=== PATIENT | male | born 1940 | race Caucasian/White ===

== ENCOUNTER 2017-05-26 23:26 | Emergency (ER) | payer OTHER ==
[~2017-05-26] VITALS: Ht 177.8 cm; Wt 68.2 kg
[2017-05-26] MEDS ORDERED: PLEASE ENTER ALLERGIES MC SCH ×2 (23:45)
[2017-05-27] MEDS ORDERED: NITROGLYCERIN SINGLE TAB 0.4 MG SL PRN
[2017-05-27] MEDS ORDERED: SODIUM CHLORIDE FLUSH 10ML SYR IVF ONE
[2017-05-27 00:13] LABS: HEMATOCRIT 40.5 % (39.2-51.8); HEMOGLOBIN 13.6 g/dL (13.7-18.0); WHITE BLOOD COUNT 8.5 x10^3/uL (3.4-10)
[2017-05-27 00:36] LABS: BLOOD UREA NITROGEN 17 mg/dL (7-18)
[2017-05-27 00:47] LABS: IS PT STATUS REG ER OR PRE ER? YES
[2017-05-27] MEDS ORDERED: ASPIRIN 81 MG TABLET CHEW ONE (00:53)
[2017-05-27] MEDS ORDERED: ASPIRIN 81 MG TABLET CHEW PO ONE (01:00)
[2017-05-27 01:12] VITALS: BP 137/77
[2017-05-27] MEDS ORDERED: DIAZ2TAB3 PO (01:12)
[2017-05-27] MEDS ORDERED: GABA300C10 PO (01:12)
[2017-05-27] MEDS ORDERED: PANT20TA3 PO (01:12)
== END 2017-05-27 01:43 | disposition left against medical advice (07) ==
LOC: ED 05-27 01:41
DX: R07.2 Precordial pain (principal); R21 Rash and other nonspecific skin eruption; J44.9 Chronic obstructive pulmonary disease, unspecified; I25.2 Old myocardial infarction; F17.200 Nicotine dependence, unspecified, uncomplicated
CPT/HCPCS: 36415; 71010; 80048; 82040; 84484; 85025; 93005; 99285

== ENCOUNTER 2019-05-03 09:03 | Emergency (ER) | payer OTHER ==
[~2019-05-03] VITALS: Ht 185.4 cm; Wt 53.6 kg
[~2019-05-03 09:03] MED LIST: DIAZ2TAB3 PO; GABA300C10 PO; PANT20TA3 PO
--- NOTE | 2019-05-03 09:11 | NUR ---
bank analyst: Pt BIB EMS after call for dizziness. Pt's HR on scene was 160s, A fib, pt is noncompliant w/ home meds (metoprolol) per EMS. Pt's HR is down to 90-110 after EMS administration of IVF. Pt in bed, NAD, no needs, report to primary RN Lambert.
[2019-05-03] MEDS ORDERED: DILTIAZEM 125 MG in SODIUM CHLORIDE 0.9% 100 ML IV SCH (09:27)
[2019-05-03] MEDS ORDERED: SODIUM CHLORIDE FLUSH 10ML SYR IVF ONE (09:30)
[2019-05-03] MEDS ORDERED: MECLIZINE CHEWABLE 25 MG TAB PO ONE (09:30)
[2019-05-03] MEDS ORDERED: MECLIZINE CHEWABLE 25 MG TAB ONE (09:37)
--- NOTE | 2019-05-03 09:42 | NUR ---
PT TO CT
[2019-05-03 09:45] LABS: BASOPHILS # (AUTO) 0.01 x10^3/uL (0-0.1); BASOPHILS % (AUTO) 0 % (0-1); EOSINOPHILS % (AUTO) 7 % (1-7); LYMPHOCYTES # (AUTO) 0.68 x10^3/uL (1-3.4); LYMPHOCYTES % (AUTO) 9 % (22-44); MD NO; MEAN CORPUSCULAR HEMOGLOBIN 30.6 pg (27.5-34.5); MEAN CORPUSCULAR HGB CONC 32.6 g/dL (33.2-36.2); MEAN CORPUSCULAR VOLUME 93.7 fL (81-97); MEAN PLATELET VOLUME 6.8 fL (7.4-10.4); MONOCYTES # (AUTO) 0.31 x10^3/uL (0.2-0.8); MONOCYTES % (AUTO) 4 % (2-9); NEUTROPHILS # (AUTO) 6.08 x10^3/uL (1.8-6.8); NEUTROPHILS % (AUTO) 80 % (42-75); PLATELET COUNT 227 x10^3/uL (130-400); RED BLOOD COUNT 4.11 x10^6/uL (4.38-5.82); RED CELL DISTRIBUTION WIDTH 15.3 % (9.4-14.8)
[2019-05-03 09:52] LABS: INTERNATIONAL NORMALIZED RATIO 1.04 (0.93-1.1); PROTHROMBIN TIME 10.9 Seconds (9.6-11.5)
[2019-05-03 09:55] LABS: ALANINE AMINOTRANSFERASE 13 U/L (12-78); ANION GAP 1 mmol/L (5-15); CALCIUM 8.5 mg/dL (8.5-10.1); CHLORIDE 105 mmol/L (98-107); CREATININE 1.03 mg/dL (0.7-1.3)
[2019-05-03 09:59] LABS: ALKALINE PHOSPHATASE 72 U/L (45-117); BILIRUBIN,TOTAL 0.4 mg/dL (0.2-1.0); TOTAL PROTEIN 7.2 g/dL (6.4-8.2); TROPONIN I < 0.015 ng/mL (0.000-0.045)
--- NOTE | 2019-05-03 10:05 | NUR ---
URINE SENT TO LAB
[2019-05-03 10:20] VITALS: BP 125/57
[2019-05-03 10:28] LABS: MICROSCOPIC AUTO
[2019-05-03 10:30] LABS: CULTURE INDICATED? NO
--- NOTE | 2019-05-03 11:11 | NUR ---
RN TO PT ROOM AND PT PULLING OFF MONITOR/IV STATING "I NEED TO LEAVE, I'M HAVING REALLY BAD FLASHBACKS AND CLAUSTROPHOBIA, YOU DON'T UNDERSTAND, SOMETIMES IT JUST ALL COMES BACK AND I CAN'T STOP IT, I NEED TO GET HOME AND GO TO MY THERAPY APPOINTMENT". RN OFFERED MEDICATION AND SUPPORT, PT DECLINING STATING, "I JUST NEED TO GET HOME". MD NOTIFIED, IV REMOVED AND TOOK PT IN WHEELCHAIR TO LOBBY. PT STATED HE WOULD CALL A CAB AND FOLLOW UP WITH HIS [facility] MD.
== END 2019-05-03 11:15 | disposition left against medical advice (07) ==
LOC: ED 10:50
DX: R42 Dizziness and giddiness (principal); I48.91 Unspecified atrial fibrillation; R51 Headache; J44.9 Chronic obstructive pulmonary disease, unspecified; F43.10 Post-traumatic stress disorder, unspecified; I25.2 Old myocardial infarction
CPT/HCPCS: 36415; 70450; 71045; 80053; 81001; 84484; 85025; 85610; 85730; 93005; 96365; 96366; 99284

== ENCOUNTER 2019-06-10 12:27 | Emergency (ER) | payer OTHER ==
[~2019-06-10] VITALS: Ht 182.9 cm; Wt 54.0 kg
[2019-06-10 13:29] VITALS: BP 123/43
[2019-06-10 14:33] LABS: ALBUMIN 3.3 g/dL (3.4-5.0); ANION GAP 4 mmol/L (5-15); CALCIUM 8.6 mg/dL (8.5-10.1); CHLORIDE 105 mmol/L (98-107)
[2019-06-10 14:35] LABS: ALANINE AMINOTRANSFERASE 14 U/L (12-78); ALKALINE PHOSPHATASE 56 U/L (45-117); BILIRUBIN,TOTAL 0.4 mg/dL (0.2-1.0); CREATININE 1.36 mg/dL (0.7-1.3); TOTAL PROTEIN 7.5 g/dL (6.4-8.2)
[2019-06-10 14:37] LABS: BASOPHILS # (AUTO) 0.02 x10^3/uL (0-0.1); BASOPHILS % (AUTO) 0 % (0-1); EOSINOPHILS # (AUTO) 0.12 x10^3/uL (0-0.4); EOSINOPHILS % (AUTO) 1 % (1-7); LYMPHOCYTES # (AUTO) 0.69 x10^3/uL (1-3.4); LYMPHOCYTES % (AUTO) 7 % (22-44); MD NO; MEAN CORPUSCULAR HEMOGLOBIN 31.5 pg (27.5-34.5); MEAN CORPUSCULAR HGB CONC 32.4 g/dL (33.2-36.2); MEAN PLATELET VOLUME 7.6 fL (7.4-10.4); MONOCYTES % (AUTO) 3 % (2-9); NEUTROPHILS # (AUTO) 9.32 x10^3/uL (1.8-6.8); NEUTROPHILS % (AUTO) 89 % (42-75); PLATELET COUNT 241 x10^3/uL (130-400); RED BLOOD COUNT 4.09 x10^6/uL (4.38-5.82); RED CELL DISTRIBUTION WIDTH 14.3 % (9.4-14.8)
[2019-06-10 14:38] LABS: SALICYLATE LEVEL < 1.7 mg/dL (2.8-20.0)
--- NOTE | 2019-06-10 15:36 | NUR ---
BREAK RN: OBTAINED URINE, TOOK TO LAB. PT VERBALIZED NO NEEDS AT THIS TIME
--- NOTE | 2019-06-10 15:45 | NUR ---
THROUGHPUT RN: PSYCH JOE CALLED. NO ANSWER.
--- NOTE | 2019-06-10 15:48 | NUR ---
THROUGHPUT RN: SOC CALLED
[2019-06-10 15:49] LABS: MICROSCOPIC AUTO
[2019-06-10 16:04] LABS: AMPHETAMINE SCREEN, URINE Negative (Negative); BARBITURATE SCREEN, URINE Negative (Negative); BENZODIAZEPINE SCREEN, URINE Positive (Negative); CANNABINOID SCREEN, URINE Negative (Negative); COCAINE SCREEN, URINE Negative (Negative); METHADONE SCREEN, URINE Negative (Negative); OPIATE SCREEN, URINE Negative (Negative)
== END 2019-06-10 17:43 | disposition home or self-care (01) ==
LOC: ED 15:09
DX: F43.0 Acute stress reaction (principal); J44.9 Chronic obstructive pulmonary disease, unspecified; I25.2 Old myocardial infarction; F43.10 Post-traumatic stress disorder, unspecified
CPT/HCPCS: 36415; 80053; 80307; 81001; 85025; 99283

== ENCOUNTER 2019-06-25 11:33 | Emergency (ER) | payer OTHER ==
[~2019-06-25] VITALS: Ht 182.9 cm; Wt 52.8 kg
--- NOTE | 2019-06-25 11:44 | NUR ---
PT BIB BY CHRISTINE. WAS FEELING SOB AT HOME. USED ALBUTEROL NEBULIZER AT HOME AND SAYS IT HELPED. IS 95% ON 3L VIA NC. NARGIS LANDIN, IS BEDSIDE. WARM BLANKET PROVIDED.
[2019-06-25] MEDS ORDERED: METOPROLOL (12:02)
[2019-06-25] MEDS ORDERED: DOXYCYCLINE (12:02)
[2019-06-25] MEDS ORDERED: APIXABAN (12:02)
[2019-06-25] MEDS ORDERED: METFORMIN (12:02)
[2019-06-25] MEDS ORDERED: PANTOPRAZOLE (12:02)
[2019-06-25] MEDS ORDERED: DIAZEPAM (12:02)
[2019-06-25] MEDS ORDERED: ALBUTEROL (12:02)
[2019-06-25] MEDS ORDERED: TRAZODONE (12:02)
[2019-06-25] MEDS ORDERED: HYDROXYZINE (12:02)
[2019-06-25] MEDS ORDERED: ATORVASTATIN (12:02)
[2019-06-25 12:12] LABS: BASOPHILS # (AUTO) 0.08 x10^3/uL (0-0.1); BASOPHILS % (AUTO) 1 % (0-1); EOSINOPHILS # (AUTO) 0.85 x10^3/uL (0-0.4); EOSINOPHILS % (AUTO) 14 % (1-7); LYMPHOCYTES # (AUTO) 0.55 x10^3/uL (1-3.4); LYMPHOCYTES % (AUTO) 9 % (22-44); MD NO; MEAN CORPUSCULAR HEMOGLOBIN 30.8 pg (27.5-34.5); MEAN CORPUSCULAR HGB CONC 32.5 g/dL (33.2-36.2); MEAN CORPUSCULAR VOLUME 94.8 fL (81-97); MEAN PLATELET VOLUME 7.7 fL (7.4-10.4); MONOCYTES # (AUTO) 0.33 x10^3/uL (0.2-0.8); MONOCYTES % (AUTO) 6 % (2-9); NEUTROPHILS % (AUTO) 69 % (42-75); PLATELET COUNT 213 x10^3/uL (130-400); RED BLOOD COUNT 3.69 x10^6/uL (4.38-5.82); RED CELL DISTRIBUTION WIDTH 14.4 % (9.4-14.8)
[2019-06-25 12:24] LABS: ALBUMIN 3.2 g/dL (3.4-5.0); ANION GAP 6 mmol/L (5-15); CALCIUM 8.5 mg/dL (8.5-10.1); CHLORIDE 106 mmol/L (98-107)
--- NOTE | 2019-06-25 12:31 | NUR ---
US IN WITH PATIENT
[2019-06-25 12:33] LABS: TROPONIN I 0.482 ng/mL (0.000-0.045)
[2019-06-25] MEDS ORDERED: ASPIRIN 81 MG TABLET CHEW ONE (12:57)
[2019-06-25] MEDS ORDERED: ASPIRIN 81 MG TABLET CHEW PO ONE (13:00)
[2019-06-25 13:08] VITALS: BP 107/46
--- NOTE | 2019-06-25 13:09 | NUR ---
PT SITTING UPRIGHT. LEGS OVER SIDE OF BED. NO NEEDS AT THIS TIME
--- NOTE | 2019-06-25 13:43 | NUR ---
PT SAID HE WANTED TO GO HOME. DR KAUFMAN WAS NOTIFIED. PATIENT WAS EDUCATED ON SEVERITY OF DIAGNOSIS. PT STILL WANTED TO LEAVE. PATIENT SIGNED AMA PAPERWORK AND LEFT.
--- NOTE | 2019-06-25 13:55 | NUR ---
PT CONTINUES TO WANT TO LEAVE AMA. PT RE-EDUCATED REGARDING ALL RISKS, INCLUDING FATALITY. PT AMBULATORY WITH STEADY GAIT TO DISCHARGE DESK. PT STATES "I'LL CALL A CAB TO GO HOME." PT IN NO ACUTE DISTRESS AMBULATING TO D/C DESK. PT D/C AND GOT INTO CAB FROM EMERGENCY ENTRANCE.
== END 2019-06-25 13:46 | disposition home or self-care (01) ==
LOC: ED 11:54
DX: J44.1 Chronic obstructive pulmonary disease with (acute) exacerbation (principal); J96.11 Chronic respiratory failure with hypoxia; I25.2 Old myocardial infarction; Z87.891 Personal history of nicotine dependence
CPT/HCPCS: 36415; 71045; 80048; 82040; 84484; 85025; 93005; 99284

== ENCOUNTER 2019-06-25 16:12 | Inpatient (IN) | payer OTHER ==
[~2019-06-25] VITALS: Ht 185.4 cm; Wt 58.1 kg
[~2019-06-25 16:12] MED LIST changes: +ALBUTEROL; +APIXABAN; +ATORVASTATIN; +DIAZEPAM; +DOXYCYCLINE; +HYDROXYZINE; +METFORMIN; +METOPROLOL; +PANTOPRAZOLE; +TRAZODONE
--- NOTE | 2019-06-25 16:25 | NUR ---
79 Y/O MALE BIB AMBULANCE WITH C/O SOB. PT WAS SEEN IN THE ED EARLIER TODAY AND LEFT AMA. PER REPORT PT CALLED EMS D/T SOB. UPON ARRIVAL PT WAS "GLUED" TO HIS NEBULIZER AND OXYGEN SATURATIONS WERE 80s AND RESPS WERE 40/MIN. PT DENIES CP AT THIS TIME. PER PT "I COULDN'T BREATHE. I CALLED. I DON'T HAVE ANY CHEST PAIN. I KNOW I LEFT BEFORE, BUT I COULDN'T BREATHE." NO C/O N/V/D, TRAUMA, SYNCOPE, CP. PT PLACED ON CONT PULSE OX,NIBP, ROAD CROSSING GUARD AND CO2 MONITOR. PT RESPIRATORY RATE IS 11/MIN
--- NOTE | 2019-06-25 16:29 | NUR ---
PT ARRIVED ON 10 LPM NON REBREATHER. PT NOW ON 5 LPM VIA N/C. LAB BEDSIDE.
[2019-06-25] MEDS ORDERED: ALBUTEROL SULFATE 2.5 MG/3 ML ONE (16:37)
[2019-06-25 16:45] LABS: BASOPHILS # (AUTO) 0.03 x10^3/uL (0-0.1); BASOPHILS % (AUTO) 1 % (0-1); EOSINOPHILS # (AUTO) 0.52 x10^3/uL (0-0.4); EOSINOPHILS % (AUTO) 10 % (1-7); LYMPHOCYTES # (AUTO) 0.72 x10^3/uL (1-3.4); LYMPHOCYTES % (AUTO) 13 % (22-44); MD NO; MEAN CORPUSCULAR HEMOGLOBIN 30.9 pg (27.5-34.5); MEAN CORPUSCULAR HGB CONC 32.5 g/dL (33.2-36.2); MEAN CORPUSCULAR VOLUME 95.1 fL (81-97); MEAN PLATELET VOLUME 7.4 fL (7.4-10.4); MONOCYTES # (AUTO) 0.39 x10^3/uL (0.2-0.8); MONOCYTES % (AUTO) 7 % (2-9); NEUTROPHILS # (AUTO) 3.72 x10^3/uL (1.8-6.8); NEUTROPHILS % (AUTO) 69 % (42-75); PLATELET COUNT 211 x10^3/uL (130-400); RED BLOOD COUNT 3.49 x10^6/uL (4.38-5.82); RED CELL DISTRIBUTION WIDTH 14.3 % (9.4-14.8)
[2019-06-25 16:55] LABS: ALBUMIN 3.1 g/dL (3.4-5.0); ANION GAP 9 mmol/L (5-15); CALCIUM 8.9 mg/dL (8.5-10.1); CHLORIDE 106 mmol/L (98-107); CREATININE 1.17 mg/dL (0.7-1.3)
[2019-06-25] MEDS ORDERED: ALBUTEROL SULFATE 2.5 MG/3 ML NPPB ONE (17:00)
--- NOTE | 2019-06-25 17:10 | NUR ---
PT EDUCATED REGARDING POSSIBLE ADMISSION THIS VISIT AND NOT RECOMMENDED TO AMA. PT VERBALIZED UNDERSTANDING.
[2019-06-25] MEDS ORDERED: DIAZEPAM 5 MG TABLET ONE (17:13)
--- NOTE | 2019-06-25 17:15 | NUR ---
PT RESTING ON GURNEY. VARGAS. PT COOPERATIVE AND PLEASANT. AWAITING CTA. NO OTHER NEEDS REQUESTED AT THIS TIME. PIV ESTABLISHED. PT TOLERATED WITH NO COMPLICATIONS. 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
--- NOTE | 2019-06-25 17:25 | NUR ---
BEDSIDE REPORT TO THANIA POWELL. PT MOVED TO ROOM 31. PT LEFT WITH ALL PERSONAL BELONGINGS FROM TR WHEN MOVED TO 31.
[2019-06-25] MEDS ORDERED: DIAZEPAM 5 MG TABLET PO ONE (17:30)
[2019-06-25] MEDS ORDERED: OMNIPAQUE 350 MG/ML, 100ML BOTTLE ONE (17:54)
[2019-06-25] MEDS ORDERED: PIPERACILLIN/TAZO/PMX 3.375GM 50 ML IV ONE (18:30)
--- NOTE | 2019-06-25 18:40 | NUR ---
TASK RN: BEDSIDE REPORT TO THANIA POWELL. PT GIVEN WARM BLANKETS.
--- NOTE | 2019-06-25 18:40 | NUR ---
REPORT RECEIVED FROM THANIA DALAL. [facility]
--- NOTE | 2019-06-25 18:54 | NUR ---
PT SITTING UPRIGHT IN BED. NO NEEDS AT THIS TIME
[2019-06-25] MEDS ORDERED: HEPARIN 5,000 UNITS/ML, 1ML ONE (18:56)
[2019-06-25] MEDS ORDERED: HEPARIN 25,000 UNITS/500ML PMX 500 ML ONE (18:56)
[2019-06-25] MEDS ORDERED: PIPERACILLIN/TAZO/PMX 3.375GM 50 ML ONE (18:56)
[2019-06-25] MEDS ORDERED: HEPARIN 5,000 UNITS/ML, 1ML IV PRN (19:00)
[2019-06-25] MEDS ORDERED: HEPARIN 25,000 UNITS/500ML PMX 500 ML IV PRN (19:00)
[2019-06-25] MEDS ORDERED: HEPARIN 5,000 UNITS/ML, 1ML IV ONE (19:00)
--- NOTE | 2019-06-25 19:43 | NUR ---
REPORT GIVEN TO THANIA ODELL. TOLD HER NOT TO HANG ABX UNTIL BLOOD CULTURES X2 HAVE BEEN DRAWN
[2019-06-25] MEDS ORDERED: SODIUM CHLORIDE 0.9% 1,000 ML IV SCH (20:05)
[2019-06-25 20:10] VITALS: BP 112/55
[2019-06-25] MEDS ORDERED: morphine SULFATE 10 MG/ML, 1ML IVPush PRN (20:30)
[2019-06-25] MEDS ORDERED: hydrALAzine 20 MG/ML, 1ML IVPush PRN (20:30)
[2019-06-25] MEDS ORDERED: BISACODYL 10 MG SUPP PR PRN (20:30)
[2019-06-25] MEDS ORDERED: ACETAMINOPHEN 325 MG TABLET PO PRN (20:30)
[2019-06-25] MEDS ORDERED: OXYcodone IR 5MG TABLET PO PRN (20:30)
[2019-06-25] MEDS ORDERED: ONDANSETRON 2MG/ML, 2ML IVPush PRN (20:30)
[2019-06-25] MEDS ORDERED: DOCUSATE 100 MG CAPSULE PO PRN (20:30)
[2019-06-25] MEDS ORDERED: ONDANSETRON ODT 4 MG PO PRN (20:30)
[2019-06-25] MEDS ORDERED: NICOTINE 14MG/24 HR PATCH.TD24 TD SCH (20:30)
[2019-06-25] MEDS ORDERED: POLYETHYLENE GLYCOL 17 GM PACKET PO PRN (20:30)
[2019-06-25] MEDS ORDERED: PROMETHAZINE 25 MG/ML, 1ML IM PRN (20:30)
[2019-06-25] MEDS ORDERED: DIAZEPAM 5 MG TABLET PO PRN (20:30)
[2019-06-25 20:41] LABS: FREE T4 (FREE THYROXINE) 1.17 ng/dL (0.76-1.46)
[2019-06-25] MEDS ORDERED: ATORVASTATIN 80 MG TABLET PO SCH (21:00)
[2019-06-25] MEDS ORDERED: DIAZEPAM 5 MG/ML, 10ML VIAL IV ONE (21:00)
[2019-06-25] MEDS: INSULIN LISPRO 100 UNITS/ML, PEN SQ-INSULIN SCH (21:00)
[2019-06-25] MEDS: ALBUTEROL SULFATE 2.5 MG/3 ML NPPB PRN (21:48)
[2019-06-25] MEDS: DOXYCYCLINE 100MG TABLET PO SCH (22:20)
[2019-06-25] MEDS ORDERED: NICOTINE 7 MG/24 HR PATCH.TD24 TD SCH (23:30)
[2019-06-26 02:21] VITALS: BP 126/73
[2019-06-26 02:27] LABS: BASOPHILS # (AUTO) 0.05 x10^3/uL (0-0.1); BASOPHILS % (AUTO) 1 % (0-1); EOSINOPHILS # (AUTO) 1.14 x10^3/uL (0-0.4); EOSINOPHILS % (AUTO) 20 % (1-7); LYMPHOCYTES # (AUTO) 1.38 x10^3/uL (1-3.4); LYMPHOCYTES % (AUTO) 25 % (22-44); MD NO; MEAN CORPUSCULAR HGB CONC 32.6 g/dL (33.2-36.2); MEAN CORPUSCULAR VOLUME 95.2 fL (81-97); MEAN PLATELET VOLUME 7.5 fL (7.4-10.4); MONOCYTES # (AUTO) 0.44 x10^3/uL (0.2-0.8); MONOCYTES % (AUTO) 8 % (2-9); NEUTROPHILS # (AUTO) 2.58 x10^3/uL (1.8-6.8); NEUTROPHILS % (AUTO) 46 % (42-75); PLATELET COUNT 196 x10^3/uL (130-400); RED BLOOD COUNT 3.36 x10^6/uL (4.38-5.82); RED CELL DISTRIBUTION WIDTH 14.2 % (9.4-14.8)
[2019-06-26 02:41] LABS: ALANINE AMINOTRANSFERASE 10 U/L (12-78); ANION GAP 7 mmol/L (5-15); CALCIUM 8.5 mg/dL (8.5-10.1); CHLORIDE 108 mmol/L (98-107); CHOLESTEROL, TOTAL 142 mg/dL (140-239); CREATININE 0.97 mg/dL (0.7-1.3)
[2019-06-26 02:43] LABS: ALKALINE PHOSPHATASE 52 U/L (45-117); BILIRUBIN,TOTAL 0.5 mg/dL (0.2-1.0); CHOL/HDL RATIO 1.9; HDL CHOL % 52 % (26-37); HDL CHOLESTEROL (DIRECT) 74 mg/dL (40-60); LDL CHOLESTEROL,CALCULATED 56 mg/dL (54-169); LDL/HDL RATIO 0.8 (0.5-3.0); TOTAL PROTEIN 6.9 g/dL (6.4-8.2); TRIGLYCERIDES 60 mg/dL (50-200); VLDL CHOLESTEROL 12 mg/dL (0-25)
[2019-06-26] MEDS ORDERED: DIAZEPAM 2 MG TABLET PO PRN (03:30)
[2019-06-26] MEDS: ALBUTEROL SULFATE 2.5 MG/3 ML NPPB PRN (03:40)
[2019-06-26] MEDS ORDERED: ASPIRIN 81 MG TABLET EC PO SCH (06:00)
[2019-06-26] MEDS ORDERED: METOPROLOL TARTRATE 25 MG TAB PO SCH (06:00)
[2019-06-26 07:01] VITALS: BP 111/67
[2019-06-26] MEDS: INSULIN LISPRO 100 UNITS/ML, PEN SQ-INSULIN SCH (08:51)
[2019-06-26] MEDS ORDERED: ACETAMINOPHEN 325 MG TABLET PO PRN (09:00)
[2019-06-26] MEDS ORDERED: NITROGLYCERIN 0.4 MG BOTTLE (25 TABS) SL PRN (09:00)
[2019-06-26] MEDS: DOXYCYCLINE 100MG TABLET PO SCH (09:02)
[2019-06-26] MEDS ORDERED: SODIUM CHLORIDE 0.9% 1,000 ML IV SCH (20:05)
== END 2019-06-26 10:10 | disposition left against medical advice (07) | DRG 280 ==
LOC: ED 16:38 → EDIP 18:23 → 5SO 19:46
PROVIDERS: ADMIT Emergency Medicine; ATTEND Emergency Medicine
DX: I21.4 Non-ST elevation (NSTEMI) myocardial infarction (principal); J96.21 Acute and chronic respiratory failure with hypoxia; D68.69 Other thrombophilia; D64.9 Anemia, unspecified; E11.9 Type 2 diabetes mellitus without complications; E78.5 Hyperlipidemia, unspecified; F17.210 Nicotine dependence, cigarettes, uncomplicated; G89.29 Other chronic pain; M79.605 Pain in left leg; M54.9 Dorsalgia, unspecified; Z53.29 Procedure and treatment not carried out because of patient's decision for other reasons; I48.91 Unspecified atrial fibrillation; J43.9 Emphysema, unspecified; M54.30 Sciatica, unspecified side; F43.10 Post-traumatic stress disorder, unspecified; I25.10 Atherosclerotic heart disease of native coronary artery without angina pectoris; I25.2 Old myocardial infarction; Z95.5 Presence of coronary angioplasty implant and graft; Z99.81 Dependence on supplemental oxygen; Z79.84 Long term (current) use of oral hypoglycemic drugs
CPT/HCPCS: 36415; 96374; 96375; 99291; J7613; 71275; 80048; 80053; 80061; 82040; 82962; 83036; 83735; 84439; 84443; 84484; 85025; 85520; 87040; 93005; 94640; G0378; J1644; J3360; Q9967; J7030